=== PATIENT | female | born 1985 | race Caucasian/White ===

== ENCOUNTER 2022-12-12 08:26 | Day surgery (SDC) | payer OTHER ==
[~2022-12-12] VITALS: Ht 160 cm; Wt 80.7 kg
[2022-12-12 09:44] LABS: BASOPHILS # (AUTO) 0.1 K/uL (0.0-0.2); BASOPHILS % (AUTO) 0.7 % (0.0-2.0); EOSINOPHILS # (AUTO) 0.1 K/uL (0.0-0.4); EOSINOPHILS % (AUTO) 1.4 % (0.0-4.0); HEMATOCRIT 36.1 % (36-48); HEMOGLOBIN 11.5 g/dL (12.0-16.0); LYMPHOCYTES # (AUTO) 2.6 K/uL (1.0-5.5); LYMPHOCYTES % (AUTO) 28.9 % (20.5-51.5); MEAN CORPUSCULAR HEMOGLOBIN 24 pg (27-31); MEAN CORPUSCULAR HGB CONC 32 % (32-36); MEAN CORPUSCULAR VOLUME 76 fL (79.0-98.0); MONOCYTES # (AUTO) 0.7 K/uL (0.0-1.0); MONOCYTES % (AUTO) 7.5 % (1.7-9.3); NEUTROPHILS # (AUTO) 5.5 K/uL (1.8-7.7); NEUTROPHILS % (AUTO) 61.5 % (40.0-70.0); PLATELET COUNT (AUTO) 373 K/uL (130-430); RED BLOOD CELL COUNT(AUTO) 4.73 MIL/uL (4.2-6.2); RED CELL DISTRIBUTION WIDTH 16.5 % (9.0-15.0)
[2022-12-12] MEDS ORDERED: CEFAZOLIN SOD 2 GM in D5W 50 ML IV ONE (10:30)
[2022-12-12 10:40] LABS: CALCIUM 8.5 mg/dL (8.4-11.0); CREATININE 0.49 mg/dL (0.55-1.30)
[2022-12-12 10:47] LABS: ALBUMIN 2.9 g/dL (3.4-4.8); TOTAL BILIRUBIN 0.3 mg/dL (0.0-1.0)
[2022-12-12] MEDS ORDERED: ONDANSETRON HCL 4 MG/2 ML VIAL ONE (12:15)
[2022-12-12] MEDS ORDERED: METOCLOPRAMIDE HCL 10 MG/2 ML VIAL ONE (12:15)
[2022-12-12] MEDS ORDERED: LIDOCAINE 1% 10 MG/ML, 20 ML MDV ONE (12:15)
[2022-12-12] MEDS ORDERED: PROPOFOL 200MG/ 20ML VIAL (DIPRIVAN) IV ONE (12:15)
[2022-12-12] MEDS ORDERED: NS IRRIG SOLN 1000 ML IR ONE (12:15)
[2022-12-12] MEDS ORDERED: MIDAZOLAM HCL 2 MG/2 ML VIAL (VERSED) ONE (12:15)
[2022-12-12] MEDS ORDERED: KETOROLAC TROMETHAMINE 30 MG VIAL ONE (12:15)
[2022-12-12] MEDS ORDERED: D5/0.45 NS 1,000 ML IV.SOLN IV ONE (12:15)
[2022-12-12] MEDS ORDERED: fentaNYL CITRATE/PF 100 MCG/2 ML AMP ONE (12:15)
[2022-12-12] MEDS ORDERED: SEVOFLURANE 15 MIN GAS INH ONE (12:15)
[2022-12-12] MEDS ORDERED: ACETAMINOPHEN I.V. 1000 MG 100 ML IV ONE (12:41)
[2022-12-12] MEDS ORDERED: D5NS 1,000 ML IV SCH (12:45)
[2022-12-12] MEDS ORDERED: HYDROmorphone 1 MG/ML INJ. CARTRIDGE IVP PRN ×2 (12:45)
[2022-12-12] MEDS ORDERED: MEPERIDINE HCL/PF 25 MG/ML DISP.SYRIN IVP PRN (12:45)
[2022-12-12] MEDS ORDERED: ONDANSETRON HCL 4 MG/2 ML VIAL IVP PRN (12:45)
[2022-12-12 13:00] VITALS: BP_SYST 108
[2022-12-12] MEDS ORDERED: LR 1,000 ML IV SCH (13:00)
[2022-12-12] MEDS ORDERED: TEMAZEPAM 15 MG CAPSULE PO PRN (13:00)
[2022-12-12] MEDS: metroNIDAZOLE 500 mg/NS 100 ML IV SCH ×2 (14:52→23:34)
[2022-12-12] MEDS ORDERED: INSULIN REGULAR, HUMAN 100 UNITS/ML, 3 ML VIAL (humuLIN R) SUBCUT PRN (15:30)
[2022-12-12] MEDS ORDERED: INSULIN REGULAR, HUMAN 10 UNITS/0.1 ML, 3 ML VIAL SUBCUT ONE ×2 (17:00→18:30)
[2022-12-12] MEDS: KETOROLAC TROMETHAMINE 30 MG VIAL IVP SCH ×2 (18:02→23:34)
[2022-12-12] MEDS: INSULIN NPH 100 UNITS/ML 10 ML VIAL SUBCUT SCH (21:02)
[2022-12-12] MEDS: ceFAZolin SODIUM 2 GM in D5W 100 ML IV SCH (22:28)
[2022-12-13] MEDS: KETOROLAC TROMETHAMINE 30 MG VIAL IVP SCH ×4 (05:00→23:13)
[2022-12-13] MEDS: ceFAZolin SODIUM 2 GM in D5W 100 ML IV SCH ×3 (06:29→21:53)
[2022-12-13] MEDS ORDERED: INSULIN REGULAR, HUMAN 10 UNITS/0.1 ML, 3 ML VIAL SUBCUT SCH (07:00)
[2022-12-13] MEDS ORDERED: INSULIN REGULAR, HUMAN 100 UNITS/ML, 3 ML VIAL ONE (07:37)
[2022-12-13] MEDS: metroNIDAZOLE 500 mg/NS 100 ML IV SCH ×3 (07:43→23:14)
[2022-12-13] MEDS ORDERED: ACETAMINOPHEN 325 MG TABLET PO PRN (09:30)
[2022-12-13] MEDS: INSULIN NPH 100 UNITS/ML 10 ML VIAL SUBCUT SCH (21:00)
[2022-12-14] MEDS: metroNIDAZOLE 500 mg/NS 100 ML IV SCH ×2 (06:07→07:32)
[2022-12-14] MEDS: KETOROLAC TROMETHAMINE 30 MG VIAL IVP SCH ×2 (06:08→12:23)
== END 2022-12-14 17:16 | disposition home or self-care (01) ==
LOC: SDS 08:26 → SMU 08:27 → SPU 14:16 → SDS 12-14 17:16
PROVIDERS: ATTEND Obstetrics & Gynecology
DX: O65.5 Obstructed labor due to abnormality of maternal pelvic organs (principal); O34.31 Maternal care for cervical incompetence, first trimester; O24.911 Unspecified diabetes mellitus in pregnancy, first trimester; Z3A.13 13 weeks gestation of pregnancy; Z20.822 Contact with and (suspected) exposure to COVID-19
CPT/HCPCS: 87081; 36415 ×2; 59320; 80053; 85025; 86886; 86900; 86901; 87426; 82962; U0003; J0690; J1885 ×3; J2001; J2765; J3490 ×2; J3465; J2405; J2704; J3010; J7060 ×3; J0131; J1815 ×4

== ENCOUNTER 2023-04-26 10:45 | Observation (INO) | payer OTHER ==
[~2023-04-26] VITALS: Ht 160 cm; Wt 95.3 kg
== END 2023-04-26 14:24 | disposition home or self-care (01) ==
LOC: SPU 10:45
PROVIDERS: ADMIT Obstetrics & Gynecology; ATTEND Obstetrics & Gynecology
DX: O36.8130 Decreased fetal movements, third trimester, not applicable or unspecified (principal); Z3A.32 32 weeks gestation of pregnancy
CPT/HCPCS: 76819; G0378